=== PATIENT | female | born 1950 | race Caucasian/White ===

== ENCOUNTER 2023-12-03 11:26 | Observation (INO) ==
[~2023-12-03 11:26] MED LIST: Naloxone 0.4 mg VIAL 0.4 mg/ml 1 ml VIAL IV PRN
[2023-12-03 12:32] LABS: Rapid COVID-19 Molecular Undetected (Undetected)
[2023-12-03] MEDS ORDERED: ceFAZolin 1 GM in Dextrose 1 GM/50 ML BAG ONE (12:58)
[2023-12-03] MEDS ORDERED: Tranexamic Acid 1 GM/100ML BAG 2,000 MG/200 ML BAG IV ONE (12:58)
[2023-12-03] MEDS ORDERED: ceFAZolin 2 GM PREMIX 2 GM/50 ML BAG ONE (12:58)
[2023-12-03] MEDS: Lactated Ringers 1000 ml BAG 1,000 ML IV SCH ×2 (13:13→20:26)
[2023-12-03] MEDS ORDERED: Midazolam 2 mg/2 ml VIAL 1 mg/ml 2 ml VIAL (2 mg) ONE (13:51)
[2023-12-03] MEDS ORDERED: Propofol 10 MG/ML 20 ML BTL ONE ×2 (13:51→16:05)
[2023-12-03 14:17] LABS: INR 0.96 (0.85-1.14)
[2023-12-03] MEDS ORDERED: Phenylephrine 40 mcg/mL 10mL (400mcg) SYRINGE ONE (15:16)
[2023-12-03] MEDS ORDERED: Ondansetron 4 mg VIAL 2 MG/ML 2 ml VIAL ONE (16:00)
[2023-12-03] MEDS ORDERED: Metoclopramide 5 MG/ML VIAL (10 mg) ONE (16:00)
[2023-12-03] MEDS ORDERED: Famotidine IV 10 MG/ML 2 ml VIAL (20 mg) ONE (16:05)
[2023-12-03] MEDS ORDERED: fentaNYL 100 mcg/2 ml 50 MCG/ML VIAL ONE ×2 (17:06→18:47)
[2023-12-03] MEDS ORDERED: Calcium Carb (TUMS) 500 mg CHEW TAB PO PRN (17:56)
[2023-12-03] MEDS ORDERED: Magnesium Hydroxide LIQ 30 ML UDC PO PRN (17:56)
[2023-12-03] MEDS ORDERED: Ondansetron 4 mg VIAL 2 MG/ML 2 ml VIAL IV PRN (17:56)
[2023-12-03] MEDS ORDERED: Ondansetron ODT 4 mg TAB 4 MG TAB PO PRN (17:56)
[2023-12-03] MEDS ORDERED: Lactulose 30 ml UDC PO PRN (17:56)
[2023-12-03] MEDS ORDERED: Morphine 2 MG/ML SYRINGE IV PRN (17:56)
[2023-12-03] MEDS: fentaNYL 100 mcg/2 ml 50 MCG/ML VIAL IV PRN (18:48)
[2023-12-03] MEDS: ceFAZolin 2 GM PREMIX 2 GM/50 ML BAG IV SCH (22:56)
[2023-12-03] MEDS: Magnesium Hydroxide LIQ 30 ML UDC PO SCH (23:09)
[2023-12-04] MEDS ORDERED: Polyethylene Glycol 3350 17 GM PACKET PO PRN (00:01)
[2023-12-04 07:17] LABS: Hematocrit 31.3 % (35-45); Hemoglobin 10.7 g/dL (11.5-14.3); Mean Platelet Volume 7.5 fL (7.5-11.2); Platelet Count 310 10^3/uL (150-450)
[2023-12-04 07:43] LABS: Calcium 8.5 mg/dL (8.6-10.3); Creatinine, Serum 0.57 mg/dL (0.51-0.95); Potassium 4.3 mmol/L (3.5-5.0); eGFR CKD-EPI 97.1 (>60)
[2023-12-04] MEDS: Vitamin THERAPEUTIC TAB PO SCH (08:00)
[2023-12-04] MEDS: Buffered Lidocaine 1% SYRIN 1 ml INTRADERM ONE (11:19)
[2023-12-04 14:46] VITALS: BP 126/91
[2023-12-04 17:28] LABS: Urine Appearance Clear; Urine Bilirubin Negative (Negative); Urine Blood Negative (Negative); Urine Color Light-Yellow; Urine Glucose Negative (Negative); Urine Ketones Negative (Negative); Urine Nitrite Negative (Negative); Urine Protein Negative (Negative); Urine Specific Gravity 1.011 (1.002-1.030); Urine Urobilinogen Negative (Negative); Urine pH 5.5 (5.0-8.0)
[2023-12-04 17:31] LABS: Urine Bacteria 1+ /HPF (Absent); Urine Red Blood Cell Trace(0-2/hpf) /HPF (0-Trace); Urine White Blood Cell Trace(0-5/hpf) /HPF (0-Trace)
== END 2023-12-04 18:30 | disposition home or self-care (01) ==
LOC: AA 11:26 → INTOOBSV 11:26 → SSU 17:56
PROVIDERS: ADMIT Orthopaedic Surgery Adult Reconstructive Orthopaedic Surgery; ATTEND Orthopaedic Surgery Adult Reconstructive Orthopaedic Surgery